=== PATIENT | male | born 1945 | race Caucasian/White ===

== ENCOUNTER 2017-01-27 05:57 | Day surgery (SDC) | payer MEDICARE, OTHER ==
[2017-01-27] MEDS ORDERED: Lactated Ringers 1,000 ML IV ONE ×2 (06:18→08:01)
[2017-01-27] MEDS ORDERED: Lactated Ringers 1,000 ML IV SCH (06:30)
[2017-01-27] MEDS ORDERED: DIPRIVAN 200 MG/20 ML IV ONE (08:00)
[2017-01-27] MEDS ORDERED: Ketamine HCl 50 MG/ML IV ONE (08:00)
[2017-01-27 08:49] VITALS: BP 122/68; PULSE 80; O2SAT 99
--- NOTE | 2017-01-27 11:38 | OP ---
SURGERY DATE/TIME: 01/27/2017 0735 PREOPERATIVE DIAGNOSES: 1) History of esophageal cancer. 2) Screening colon exam. POSTOPERATIVE DIAGNOSES: 1) Normal gastroesophageal junction. 2) Gastritis. 3) Normal colon. PROCEDURES: 1) Esophagogastroduodenoscopy with biopsy. 2) Colonoscopy. SURGEON: Dr. Jacobs. ANESTHESIA: Medications were given by the anesthesia department. BRIEF HISTORY: The patient is a 72 year old white male patient with history of esophageal cancer successfully resected approximately ten years ago. The patient has been receiving yearly evaluations for follow up. It is time for his usual evaluation. It has been several years since his previous colon examination. He was felt the need to have endoscopic evaluation for screening colonoscopy at the same time. The patient was appraised of the risks of the procedure including the risk of perforation, phlebitis, untoward reaction to medication, bleeding and missed lesions. The patient verbalized his understanding and desired to have the procedure performed. DESCRIPTION OF PROCEDURE: The patient was given the medications by the anesthesia department. He had continuous pulse oximetry, ECG monitoring, intermittent blood pressure monitoring and tidal CO2 monitoring during the examination. He was placed in the left lateral decubitus position. A bite block was placed and the flexible Olympus gastroscope was used to intubate the oropharynx. A view of the larynx was obtained and was normal. The scope was easily introduced in the esophagus which was short. The gastroesophageal junction appeared to be essentially normal. Biopsies obtained from the area of gastroesophageal junction to rule out any recurrence of neoplasia. The stomach was entered where it was a small pouch. There was evidence of gastritis here. However the scope was passed through this area into the small bowel which appeared to be essentially normal. 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 The scope was removed from the patient. Next, a digital rectal examination was performed and revealed normal anal sphincter tone and no masses and normal prostate. The flexible Olympus pediatric colonoscope was used to intubate the rectum. A view of the colon was developed sequentially to the cecum. Upon insertion and withdrawal, including a retroflex view in the rectum, no mucosal lesions were encountered. The scope was removed from the patient who tolerated the procedure well and was sent back to OP recovery in good condition. The prep was noted to be fair to good.
== END 2017-01-27 09:30 | disposition home or self-care (01) ==
LOC: SDC 05:57
PROVIDERS: ATTEND Family Medicine
PROC: 0DB28ZX Excision of Middle Esophagus, Via Natural or Artificial Opening Endoscopic, Diagnostic (ICD-10-PCS; principal; 2017-01-27)
PROC: 0DB68ZX Excision of Stomach, Via Natural or Artificial Opening Endoscopic, Diagnostic (ICD-10-PCS; 2017-01-27)
PROC: 0DJD8ZZ Inspection of Lower Intestinal Tract, Via Natural or Artificial Opening Endoscopic (ICD-10-PCS; 2017-01-27)
DX: K29.70 Gastritis, unspecified, without bleeding (principal); Z12.11 Encounter for screening for malignant neoplasm of colon
CPT/HCPCS: 43239; G0121; 00740; 00810; 36415; 88305; 99100; J2704

== ENCOUNTER 2017-08-23 07:51 | Emergency (ER) | payer MEDICARE, OTHER ==
[2017-08-23 08:10] VITALS: O2SAT 94
--- NOTE | 2017-08-23 08:34 | ERPHSYRPT ---
- History of Present Illness Time Seen by Provider: 08/23/17 08:29 Source: patient Exam Limitations: no limitations Patient Subjective Stated Complaint: pt here for stuffy nose,congestion, cough, no fever Triage Nursing Assessment: pt walked in, resp easy, skin w/d/p.no distress noted Physician History: Patient is a 72-year-old male comes in with vague complaints of a runny nose and possibly a cough when he woke up today. He thinks he might be coming down with something. He denies fever. He denies nausea, vomiting, or diarrhea. He got his flu shot this year. He wants another flu shot today. He wants a pneumonia shot even though his had 2 or 3 previously. He was going to call his daughter this morning but did not want to wake her up. He denies sore throat. His past medical history significant for high cholesterol, hypertension, and heart valve replacement. Timing/Duration: this morning Severity: mild ENT Location: nose Prearrival Treatment: no prearrival treatment Associated Symptoms: No ear pain (R), No ear pain (L), No fever, No chills, No sore throat Allergies/Adverse Reactions: No Known Drug Allergies Allergy (Verified 08/23/17 08:10) Home Medications: Zolpidem Tartrate [Ambien] 10 mg PO HS 05/02/12 [History] Aspirin [Ecotrin] 1 tab PO DAILY 05/02/13 [History] Furosemide [Lasix] 1 tab PO DAILY 04/18/14 [History] Metoprolol Tartrate 25 mg [Lopressor 25MG Tab] 12.5 mg PO BID 04/23/15 [ History] Potassium Chloride [K-Dur] 10 meq PO DAILY 04/23/15 [History] Esomeprazole Magnesium [Nexium] 40 mg PO BID 01/12/17 [History] Pravastatin Sodium 10 mg PO HS 01/12/17 [History] Hx Influenza Vaccination/Date Given: Yes Hx Pneumococcal Vaccination/Date Given: No Immunizations Up to Date: Yes - Review of Systems Constitutional: No Fever, No Chills Eyes: No Symptoms Ears, Nose, & Throat: Nose Discharge Respiratory: No Symptoms Cardiac: No Chest Pain, No Edema, No Syncope Abdominal/Gastrointestinal: No Abdominal Pain, No Nausea, No Vomiting, No Diarrhea Genitourinary Symptoms: No Dysuria Musculoskeletal: No Back Pain, No Neck Pain Skin: No Rash Neurological: No Dizziness, No Focal Weakness, No Sensory Changes Psychological: No Symptoms Endocrine: No Symptoms Hematologic/Lymphatic: No Symptoms Immunological/Allergic: No Symptoms All Other Systems: Reviewed and Negative - Past Medical History Pertinent Past Medical History: Yes Neurological History: Stroke ENT History: No Pertinent History Cardiac History: No Pertinent History, Other Respiratory History: No Pertinent History Endocrine Medical History: No Pertinent History Musculoskeletal History: No Pertinent History GI Medical History: Esophageal Disorder, Stomach Cancer History: No Pertinent History Psycho-Social History: No Pertinent History Male Reproductive Disorders: No Pertinent History Other Medical History: , 11years ago cancer esophagus cancer,valve 2013 replaced - Past Surgical History Past Surgical History: Yes Neuro Surgical History: No Pertinent History Cardiac: Valve Replacement Respiratory: No Pertinent History Gastrointestinal: Appendectomy Genitourinary: No Pertinent History Musculoskeletal: Orthopedic Surgery Male Surgical History: No Pertinent History Other Surgical History: esphagus sugery remove tumor,lt hand - Social History Smoking Status: Former smoker Exposure to second hand smoke: No Drug Use: none Patient Lives Alone: Yes - Nursing Vital Signs Nursing Vital Signs: Initial Vital Signs Temperature 98.4 F 08/23/17 08:01 Pulse Rate 74 08/23/17 08:01 Blood Pressure 118/71 08/23/17 08:01 O2 Sat by Pulse Oximetry 94 L 08/23/17 08:01 - Physical Exam General Appearance: no apparent distress, alert Eye Exam: bilateral eye: PERRL, EOMI Ear Exam: bilateral ear: auricle normal Nasal Exam: discharge (clear) Throat Exam: pharynx normal, moist mucus membranes, No tonsillar exudate Neck Exam: supple Cardiovascular/Respiratory Exam: regular rate/rhythm, murmur, rhonchi, No wheezing Abdominal Exam: non-tender, soft Neurologic Exam: alert, oriented x 3, sensation nml, No motor deficits Skin Exam: normal color, warm, dry SpO2 Interpretation: normal SpO2: 94 Oxygen Delivery: Room Air - Departure Time of Disposition: 08:34 Departure Disposition: Home Clinical Impression: Rhinorrhea, Rhonchi Condition: Stable Critical Care Time: No Referrals: PASTORA MEZA [Primary Care Provider] - Additional Instructions: You have nasal discharge and some rough sounds in your lungs. Take Tamiflu 75 mg 2 times a day for 5 days. Take azithromycin as directed. Take Tylenol and ibuprofen as needed. Follow-up in one to 2 days. Prescriptions: Azithromycin 250 mg [Zithromax 250 MG TABLET] 250 mg PO ZPACK #6 tablet Oseltamivir Phosphate [Tamiflu] 75 mg PO BID #10 capsule
[2017-08-23 08:44] VITALS: BP 106/64; PULSE 70
== END 2017-08-23 08:43 | disposition home or self-care (01) ==
LOC: ED 07:51
DX: J34.89 Other specified disorders of nose and nasal sinuses (principal)
CPT/HCPCS: 99283

== ENCOUNTER 2018-02-16 05:52 | Day surgery (SDC) | payer MEDICARE, OTHER ==
[2018-02-16] MEDS ORDERED: DIPRIVAN 200 MG/20 ML IV ONE (05:53)
[2018-02-16 06:26] VITALS: O2SAT 100
[2018-02-16] MEDS ORDERED: Lactated Ringers 1,000 ML IV SCH (06:30)
[2018-02-16 07:14] LABS: ANION GAP 10.4 MEQ/L (5-15); BLOOD UREA NITROGEN 28 mg/dL (9-20); CHLORIDE 107 mmol/L (98-107); Calcium 9.1 mg/dL (8.4-10.2); Carbon Dioxide 30 mmol/L (22-30); Creatinine 1 0.99 mg/dL (0.66-1.25); Glucose 92 mg/dL (74-106); Potassium 4.1 mmol/L (3.5-5.1); SGOT/AST 21 U/L (17-59); SODIUM 143 mmol/L (137-145)
[2018-02-16 07:27] LABS: Risk Ratio 2.7
[2018-02-16] MEDS ORDERED: Lactated Ringers 1,000 ML IV ONE (07:54)
[2018-02-16 09:00] VITALS: PULSE 71
[2018-02-16 09:11] VITALS: BP 119/70
--- NOTE | 2018-02-16 09:51 | OP ---
SURGERY DATE/TIME: 02/16/2018 0804 PREOPERATIVE DIAGNOSIS: History of esophageal cancer. POSTOPERATIVE DIAGNOSIS: Status post partial esophagectomy and gastrectomy with reanastomosis. PROCEDURE: Esophagogastroduodenoscopy with biopsies at the site of previous cancer. SURGEON: Dr. Jacobs. ANESTHESIA: Medications were given by the anesthesia department. BRIEF HISTORY: The patient is a 73 year old white male patient who is now several years past previous surgery for removal of esophageal cancer. He has been undergoing surveillance yearly since that time. The patient was reappraised of the risks of the procedure including the risk of perforation, phlebitis, untoward reaction to medication, bleeding and missed lesions. The patient verbalized his understanding and desired to have the procedure performed. DESCRIPTION OF PROCEDURE: The patient was given the medications by the anesthesia department. He had continuous pulse oximetry, ECG monitoring, intermittent blood pressure monitoring and tidal CO2 monitoring during the examination. He was placed in the left lateral decubitus position. A bite block was placed. The flexible Olympus gastroscope was used to intubate the oropharynx. A view of the larynx was obtained and was normal. The scope was easily introduced in the esophagus. We reached the gastroesophageal junction at approximately 25 cm depth insertion. There appeared to be no obvious evidence of any recurrence. We were able to pass through the area into the remnant of the stomach and then into the small bowel. The patient did have some friable areas which were noted. Biopsies were obtained to rule out the presence of recurrence at the site of the previous removal and reanastomosis. The suture line with susannah still seen at this time. After the biopsy the scope was removed from the patient who tolerated the procedure well and was sent back to outpatient recovery in good condition.
== END 2018-02-16 09:20 | disposition home or self-care (01) ==
LOC: SDC 05:52
PROVIDERS: ATTEND Family Medicine
DX: Z85.01 Personal history of malignant neoplasm of esophagus (principal); Z90.3 Acquired absence of stomach [part of]; Z90.49 Acquired absence of other specified parts of digestive tract; E78.5 Hyperlipidemia, unspecified; I25.10 Atherosclerotic heart disease of native coronary artery without angina pectoris
CPT/HCPCS: 36415; 80048; 80061; 83721; 84450; 88305; 93005; 94250; 99100; J2704